=== PATIENT | male | born 1965 | race Caucasian/White ===

== ENCOUNTER 2020-01-26 08:00 | Outpatient (CLI) | payer OTHER | END 2020-01-26 23:59 | disposition home or self-care (01) | LOC: LAB.R 08:00 | PROVIDERS: ATTEND Physician Assistant Medical | DX: N39.0 Urinary tract infection, site not specified (principal) | CPT/HCPCS: 87086 ==

== ENCOUNTER 2020-01-26 10:55 | Outpatient (CLI) | payer OTHER ==
--- NOTE | 2020-01-26 11:19 | XRAY Report ---
PROCEDURE: Abdomen 2 View X-Ray INDICATIONS: ABDOMINAL PAIN TECHNIQUE: 2 views of the abdomen were acquired. COMPARISON: None FINDINGS: Surgical changes and devices: None. Bowel: No pneumoperitoneum. The bowel gas pattern is normal. Soft tissues: No masses; visualized solid organ contours appear normal in size. No suspicious abdom inal calcifications. Bones: No suspicious bony abnormalities. IMPRESSION: No renal stone by plain film radiograph. No definite dilated loops of bowel. Reviewed by: Carrie Tidwell MD, PhD on 01/26/2020 11:18 AM PDT Approved by: Carrie Tidwell MD, PhD on 01/26/2020 11:18 AM PDT Station ID: [id number]
== END 2020-01-26 10:56 | disposition home or self-care (01) ==
LOC: DI.S 10:55
PROVIDERS: ATTEND Physician Assistant Medical
DX: R10.9 Unspecified abdominal pain (principal); N39.0 Urinary tract infection, site not specified
CPT/HCPCS: 74019; 87086

== ENCOUNTER 2020-04-26 11:05 | Outpatient (CLI) | payer BC, OTHER | END 2020-04-26 11:06 | disposition home or self-care (01) | LOC: LAB.S 11:05 | PROVIDERS: ATTEND Psychiatry & Neurology Neurology | DX: G51.32 Clonic hemifacial spasm, left (principal) | CPT/HCPCS: 36415; 81599; 86617 ==

== ENCOUNTER 2021-06-14 08:47 | Outpatient (CLI) | payer BC ==
[2021-06-14 14:35] LABS: BASOPHILS % (AUTO) 0.3 %; EOSINOPHILS # (AUTO) 0.4 10^3/uL (0.0-0.7); EOSINOPHILS % (AUTO) 6.7 %; HCT - HEMATOCRIT 42.4 % (42.0-52.0); HGB - HEMOGLOBIN 14.1 g/dL (14.0-18.0); LYMPHOCYTES # (AUTO) 3.1 10^3/uL (1.5-3.5); LYMPHOCYTES % (AUTO) 46.9 %; MEAN CORPUSCULAR HEMOGLOBIN 30.7 pg (27.0-31.0); MEAN CORPUSCULAR HGB CONC 33.3 g/dL (32.0-36.0); MEAN CORPUSCULAR VOLUME 92.4 fL (80.0-94.0); MONOCYTES # (AUTO) 0.4 10^3/uL (0.0-1.0); MONOCYTES % (AUTO) 6.3 %; NEUTROPHILS # (AUTO) 2.6 10^3/uL (1.5-6.6); NEUTROPHILS % (AUTO) 39.6 %; PLT - PLATELET COUNT 256 10^3/uL (130-450); RED BLOOD COUNT 4.59 10^6/uL (4.70-6.10); RED CELL DISTRIBUTION WIDTH 13.6 % (12.0-15.0); WHITE BLOOD COUNT 6.5 x10^3/uL (4.8-10.8)
[2021-06-14 15:17] LABS: ALBUMIN 4.2 g/dL (3.2-5.5); ALBUMIN/GLOBULIN RATIO 1.4 (1.0-2.2); ALKALINE PHOSPHATASE 42 IU/L (42-121); ALT ALANINE AMINOTRANSFERASE 25 IU/L (10-60); AST ASPARTATE AMINOTRANSFERASE 22 IU/L (10-42); BILIRUBIN,TOTAL 1.2 mg/dL (0.2-1.0); BUN - BLOOD UREA NITROGEN 21 mg/dL (6-20); CARBON DIOXIDE - CO2 27 mmol/L (21-32); CHLORIDE 101 mmol/L (101-111); CHOL/HDL RATIO 6.1 (<5.0); CHOLESTEROL 252 mg/dL; CREATININE 0.9 mg/dL (0.6-1.2); GFR - MDRD 87 (>89); GLUCOSE 96 mg/dL (70-100); HDL CHOLESTEROL 41 mg/dL; LDL CHOLESTEROL,CALCULATED 190 mg/dL; LDL/HDL RATIO 4.6 (<3.6); POTASSIUM 4.1 mmol/L (3.5-5.0); SODIUM 136 mmol/L (135-145); TOTAL PROTEIN 7.1 g/dL (6.7-8.2); TRIGLYCERIDES 106 mg/dL; VLDL CHOLESTEROL 21 mg/dL
--- NOTE | 2021-06-14 17:35 | XRAY Report ---
PROCEDURE: Hand 3 View LT INDICATIONS: HAND JOINT PAIN, LEFT TECHNIQUE: 3 views of the hand(s) acquired. COMPARISON: None. FINDINGS: Bones: No fractures or dislocations. No suspicious bony lesions. Mild osteoarthritic changes are p resent at the first metacarpophalangeal joint and multiple interphalangeal joints. Soft tissues: No suspicious soft tissue calcifications. IMPRESSION: Mild osteoarthritis. Reviewed by: Mingo Rivera MD on 06/14/2021 5:33 PM PST Approved by: Mingo Rivera MD on 06/14/2021 5:33 PM PST Station ID: [id number]
== END 2021-06-14 08:48 | disposition home or self-care (01) ==
LOC: LAB.S 08:47 → DI.S 08:48
PROVIDERS: ATTEND Internal Medicine
DX: M19.042 Primary osteoarthritis, left hand (principal); Z79.899 Other long term (current) drug therapy; Z13.220 Encounter for screening for lipoid disorders; Z12.5 Encounter for screening for malignant neoplasm of prostate
CPT/HCPCS: 36415; 80053; 80061; 83721; 84153; 85025

== ENCOUNTER 2021-08-04 09:34 | Outpatient (CLI) | payer BC | END 2021-08-04 09:35 | disposition home or self-care (01) | LOC: LAB.S 09:34 | PROVIDERS: ATTEND Internal Medicine | DX: R53.83 Other fatigue (principal) | CPT/HCPCS: 81599; 84402; 84403 ==

== ENCOUNTER 2022-12-14 09:06 | Outpatient (CLI) | payer BC ==
[2022-12-14 14:49] LABS: BASOPHILS % (AUTO) 0.3 %; EOSINOPHILS # (AUTO) 0.3 10^3/uL (0.0-0.7); EOSINOPHILS % (AUTO) 3.4 %; HCT - HEMATOCRIT 44.7 % (42.0-52.0); HGB - HEMOGLOBIN 14.8 g/dL (14.0-18.0); LYMPHOCYTES # (AUTO) 3.2 10^3/uL (1.5-3.5); LYMPHOCYTES % (AUTO) 42.6 %; MEAN CORPUSCULAR HEMOGLOBIN 30.1 pg (27.0-31.0); MEAN CORPUSCULAR HGB CONC 33.1 g/dL (32.0-36.0); MONOCYTES # (AUTO) 0.6 10^3/uL (0.0-1.0); MONOCYTES % (AUTO) 7.4 %; NEUTROPHILS # (AUTO) 3.5 10^3/uL (1.5-6.6); NEUTROPHILS % (AUTO) 46.2 %; PLT - PLATELET COUNT 241 10^3/uL (130-450); RED BLOOD COUNT 4.91 10^6/uL (4.70-6.10); RED CELL DISTRIBUTION WIDTH 13.4 % (12.0-15.0); WHITE BLOOD COUNT 7.5 x10^3/uL (4.8-10.8)
[2022-12-14 15:22] LABS: ALBUMIN 4.3 g/dL (3.2-5.5); ALBUMIN/GLOBULIN RATIO 1.5 (1.0-2.2); ALKALINE PHOSPHATASE 41 IU/L (42-121); ALT ALANINE AMINOTRANSFERASE 35 IU/L (10-60); AST ASPARTATE AMINOTRANSFERASE 31 IU/L (10-42); BILIRUBIN,TOTAL 1.4 mg/dL (0.2-1.0); BUN - BLOOD UREA NITROGEN 16 mg/dL (6-20); CALCIUM 9.1 mg/dL (8.5-10.3); CARBON DIOXIDE - CO2 30 mmol/L (21-32); CHLORIDE 104 mmol/L (101-111); CHOL/HDL RATIO 2.4 (<5.0); CHOLESTEROL 128 mg/dL; CREATININE 1.1 mg/dL (0.6-1.2); GFR - MDRD 69 (>89); GLUCOSE 107 mg/dL (70-100); HDL CHOLESTEROL 53 mg/dL; LDL CHOLESTEROL,CALCULATED 58 mg/dL; LDL/HDL RATIO 1.1 (<3.6); POTASSIUM 4.1 mmol/L (3.5-5.0); SODIUM 138 mmol/L (135-145); TOTAL PROTEIN 7.1 g/dL (6.7-8.2); TRIGLYCERIDES 85 mg/dL; VLDL CHOLESTEROL 17 mg/dL
== END 2022-12-14 09:07 | disposition home or self-care (01) ==
LOC: LAB.S 09:06
PROVIDERS: ATTEND Registered Nurse
DX: I10 Essential (primary) hypertension (principal); E78.5 Hyperlipidemia, unspecified
CPT/HCPCS: 36415; 80053; 80061; 83721; 85025

== ENCOUNTER 2023-03-19 14:15 | Outpatient (CLI) | payer BC | END 2023-03-19 14:16 | disposition home or self-care (01) | LOC: CAM 14:15 | PROVIDERS: ATTEND Registered Nurse | DX: G51.39 Clonic hemifacial spasm, unspecified (principal) | CPT/HCPCS: 97810; 97811 ==

== ENCOUNTER 2023-03-26 14:11 | Outpatient (CLI) | payer BC | END 2023-03-26 14:12 | disposition home or self-care (01) | LOC: CAM 14:11 | PROVIDERS: ATTEND Registered Nurse | DX: G51.39 Clonic hemifacial spasm, unspecified (principal) | CPT/HCPCS: 97813; 97814 ==

== ENCOUNTER 2023-04-02 14:14 | Outpatient (CLI) | payer BC | END 2023-04-02 14:15 | disposition home or self-care (01) | LOC: CAM 14:14 | PROVIDERS: ATTEND Registered Nurse | DX: G51.39 Clonic hemifacial spasm, unspecified (principal) | CPT/HCPCS: 97813; 97814 ==

== ENCOUNTER 2023-04-09 14:15 | Outpatient (CLI) | payer BC | END 2023-04-09 14:16 | disposition home or self-care (01) | LOC: CAM 14:15 | PROVIDERS: ATTEND Registered Nurse | DX: G51.39 Clonic hemifacial spasm, unspecified (principal) | CPT/HCPCS: 97813; 97814 ==

== ENCOUNTER 2023-04-18 10:55 | Outpatient (CLI) | payer BC ==
[2023-04-18 15:49] LABS: CHOL/HDL RATIO 2.9 (<5.0); CHOLESTEROL 137 mg/dL; HDL CHOLESTEROL 48 mg/dL; LDL CHOLESTEROL,CALCULATED 60 mg/dL; LDL/HDL RATIO 1.3 (<3.6); TRIGLYCERIDES 145 mg/dL (48-352); VLDL CHOLESTEROL 29 mg/dL
== END 2023-04-18 10:56 | disposition home or self-care (01) ==
LOC: LAB.S 10:55
PROVIDERS: ATTEND Registered Nurse
DX: E78.5 Hyperlipidemia, unspecified (principal)
CPT/HCPCS: 36415; 80061; 83721

== ENCOUNTER 2023-05-14 15:27 | Outpatient (CLI) | payer BC | END 2023-05-14 15:28 | disposition home or self-care (01) | LOC: CAM 15:27 | PROVIDERS: ATTEND Registered Nurse | DX: G51.39 Clonic hemifacial spasm, unspecified (principal) | CPT/HCPCS: 97813; 97814 ==

== ENCOUNTER 2023-05-21 15:25 | Outpatient (CLI) | payer BC | END 2023-05-21 15:26 | disposition home or self-care (01) | LOC: CAM 15:25 | PROVIDERS: ATTEND Registered Nurse | DX: G51.39 Clonic hemifacial spasm, unspecified (principal) | CPT/HCPCS: 97813; 97814 ==